=== PATIENT | female | born 1990 | race African-American/Black ===

== ENCOUNTER 2016-07-05 11:51 | Inpatient (IN) ==
--- NOTE | 2016-07-05 14:15 | Ultrasound Report ---
US OB >= 14 weeks fetus Indication: . Question of incompetent cervix. Complete obstetric ultrasound: Neither maternal ovary identified. Single fetus is in a breech position. Posterior placenta without previa. Cervix is completely open, measuring over 20 mm diameter dilation, with bulging membranes in the upper vagina. On various images, the feet protrude into the sac. Largest vertical pocket of amniotic fluid 52 mm. Cerebellum 19 mm and cisterna magna 3 mm. spine, four-chamber heart at 144 bpm, stomach bubble, kidneys, bladder, three-vessel cord and cord insertion site are grossly unremarkable. BPD: 19 weeks 0 days HC: 27/05 AC: 27/05 FL: 26/04 Impression: 1. Single IUP 19 weeks 1 day +/- 9 days. NATY 11/28/2016. Previous estimate 11/24/2016. 2. Cervical incompetence, dilated to 20 mm, with bulging membranes as described. Normal DIRK at this time. Comment: Critical test result discussed with Dr. Sarah at 1400 hours. PROCEDURE INTERPRETED AT [facility] DEPARTMENT OF RADIOLOGY Final Report Signed by: Waqar Tom M.D.
[2016-07-05] MEDS: LACTATED RINGERS 1,000 ML IV SCH ×2 (14:20→15:36)
[2016-07-05] MEDS ORDERED: ePHEDrine 50 MG/ML AMP IV PRN (14:37)
[2016-07-05] MEDS ORDERED: FAMOTIDINE 20 MG/2 ML VIAL IV ONE (14:37)
[2016-07-05] MEDS ORDERED: hydrOXYzine HCL 25 MG/1 ML VIAL IM PRN (14:37)
[2016-07-05] MEDS ORDERED: diphenhydrAMINE 50 MG/1 ML VIAL IV PRN (14:37)
[2016-07-05] MEDS ORDERED: fentaNYL 2 MCG/ROPIV 0.2% EPID 150 ML EPIDURAL SCH (14:37)
[2016-07-05] MEDS ORDERED: CITRIC ACID/SODIUM CITRATE 30 ML UDCUP PO ONE (14:37)
[2016-07-05] MEDS ORDERED: PROMETHAZINE 25 MG/1 ML VIAL IM ONE (14:37)
[2016-07-05 15:11] LABS: Basophils % 0.2 % (0.0-0.8); Eosinophils # 0.1 10*3/uL (0.0-0.87); Eosinophils % 1.2 % (0.00-10.9); Hematocrit 29.3 VOL% (35.7-47.0); Immature Granulocytes % 0.7 %; Immature Granulocytes Absolute 0.06 #; Lymphocytes # 1.9 10*3/uL (1.4-4.0); Lymphocytes % 22.1 % (21.3-54.2); Mean Corpuscular HGB Conc 30.7 GM/DL (32-36); Mean Corpuscular Hemoglobin 24 PG (27-34); Mean Corpuscular Volume 76.5 FL (87-102); Monocytes # 0.7 10*3/uL (0.11-0.8); Monocytes % 8.4 % (1.7-12.7); Neutrophils # 5.8 10*3/uL (1.4-7.4); Neutrophils % 67.4 % (38.7-73.9); Platelet Count 319 T/CUMM (130-400); Red Blood Count 3.83 MC/CUMM (3.8-5.5); Red Cell Distribution Width 16.7 % (9.3-17.3); White Blood Count 8.6 T/CUMM (4-12)
[2016-07-05 15:34] LABS: Alanine Aminotransferase 35 U/L (13-56); Albumin 3.2 G/DL (3.4-5.0); Alkaline Phosphatase 77 U/L (45-117); Aspartate Amino Transferase 20 U/L (0-37); Bilirubin,Total < 0.39 MG/DL (0.2-1.0); Blood Urea Nitrogen 6 MG/DL (7-18); Calcium 8.6 MG/DL (8.5-10.1); Glucose 94 MG/DL (74-106); Osmolality,Calculated 276.4 MOS/KG (273-304); Potassium 3.7 MMOL/L (3.5-5.1); Sodium 140 MMOL/L (136-145); Total Protein 6.9 G/DL (6.4-8.3)
--- NOTE | 2016-07-05 16:22 | OB/GYN History & Physical ---
History of Present Illness Chief complaint: 19+ weeks gestation with incompetent cervix History of present illness: Ms. Gleason is a 26 year old female 2 para 0 who presented to the office for routine examination. This patient was examined heart tones are was obtained, cervix demonstrated a small cervical nub with suture present. Ultrasound was obtained which demonstrated funneling of the amniotic membranes through the cervical opening. This case was discussed with the maternal- medicine Department in [facility] and they felt that a rescue stitch was not feasible at this time because of the diminished cervical length. These options were discussed with the patient .#1 is to allow nature to take his course and patient maybe remain hospitalized . A time. #2 was 2 initiate labor by continuously removing the remaining portion of the suture. And #3 is to allow this patient be discharged and to follow-up once she proceeded into labor. Home Medications Medication Instructions Recorded Confirmed Type Folic Acid Tab 1 mg PO DAILY 05/28/16 07/05/16 History Pnv No.122/Iron/Folic Acid 1 tablet PO DAILY 05/28/16 07/05/16 History [ Multi Tablet] HYDROcodone/ACETAMIN 5-325 [[place] 1 tablet PO Q4H PRN #10 tablet 05/31/16 Rx 5-325] Allergies Allergy/AdvReac Type Severity Reaction Status Date / Time No Known Allergies Allergy Unverified 11/10/15 19:32 Medical,Surgical,& Family Hx - Medical History Neurology: No history of: Brain Aneurysm, Cerebral Hemorrhage, Cerebrovascular Accident , Cerebral Palsy, Dementia, Migraine, Multiple Sclerosis, Parkinson's Disease, Peripheral Neuropathy, Seizures, TIA, Vertigo, Neurologocal Cancer HEENT: History of: Eye Problem (CONTACTS AND GLASSES) Endocrine: No history of: Diabetes Mellitus (IDDM) Genitourinary: History of: Recurring Urinary Tract Infections Musculoskeletal: No history of: Amputation Reproductive: History of: Reproductive Problems (TIGHTENING CERVIX FOR ) No history of: Ectopic , Complication - Surgical History Cardiac Surgeries: Patient Denies: Cardiac Catheterization Thoracic Surgeries: Patient denies;: Organ Transplant, Lobectomy Neurologic Surgeries: Patient denies: Brain Aneurysm, Cerebral Hemorrhage, Neurologic Surgery HEENT Surgeries: Patient denies: Tonsilectomy & Adenoidectomy Reproductive Surgeries: Patient denies;: Section, Genitourinary Surgery - Family History Family History: Reports;: Family Cancer (GREAT GRANDMOTHER), Family Diabetes ( GRANDMOTHER AUNT), Family Hypertension (MOTHER) Denies;: Family Anesthesia Reaction, Family Heart Disease, Family Psychiatric Problems, Family Stroke - Social History Smoking Status: Never smoker Frequency of Alcohol Use: None 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 - Eye Eye exam: Present: EOMI - ENT ENT exam: Present: normal exam - Neck Neck exam: Present: normal inspection - Respiratory Respiratory exam: Present: clear to auscultation bilaterally - Breast Breasts: as per HPI Menstruation: as per HPI - Cardiovascular Cardiovascular exam: Present: regular rate and rhythm - GI/Abdominal GI/Abdominal exam: Present: normal bowel sounds - Extremities Exam Extremities exam: Present: normal inspection - Back Exam Back exam: Present: normal inspection - Neurological Exam Neurological exam: Present: alert, oriented X3 - Psychiatric Psychiatric exam: Present: normal affect - Skin Skin exam: Present: normal color Assessment and Plan (1) Incompetent cervix during second trimester, antepartum Status: Acute Assessment and plan: Cervical incompetence with funneling of the amniotic sac. Multiple options was given to the patient. We'll allow her to rest and discussed this with her family members this evening. Possibility of initiating labor in the a.m. or discharge in his patient to allow nature take its course was discussed with this patient. Current Visit: No Results - Labs CBC & BMP: 07/05/16 14:33 07/05/16 14:33 Quality Measures - VTE Contraindication to Pharmacological VTE Prophylaxis: Continuous Epidural Infusion
[2016-07-05] MEDS: AMPICILLIN INJ 2,000 MG in SODIUM CHLORIDE 0.9% 100 ML IV SCH ×3 (16:50→23:40)
[2016-07-05] MEDS ORDERED: ZALEPLON 5 MG CAPSULE PO PRN (19:49)
[2016-07-06] MEDS: AMPICILLIN INJ 2,000 MG in SODIUM CHLORIDE 0.9% 100 ML IV SCH ×2 (02:30→05:45)
[2016-07-06 08:32] VITALS: BP 125/59
== END 2016-07-06 11:20 | disposition home or self-care (01) | DRG 782 ==
LOC: N.ULTRA 11:51 → N.LD 11:51 → EDSTATUS 13:00 → N.LD 14:08
PROVIDERS: ADMIT Obstetrics & Gynecology; ATTEND Obstetrics & Gynecology

== ENCOUNTER 2016-07-17 20:55 | Inpatient (IN) ==
[2016-07-17] MEDS ORDERED: ONDANSETRON 4 MG/2 ML VIAL IV PRN (21:14)
[2016-07-17] MEDS ORDERED: MEPERIDINE 50 MG/1 ML VIAL IV PRN (21:14)
[2016-07-17] MEDS ORDERED: BUTORPHANOL 2 MG/ML VIAL IV PRN (21:14)
[2016-07-17] MEDS ORDERED: ACETAMINOPHEN 325 MG TABLET PO PRN (21:14)
[2016-07-17] MEDS: LACTATED RINGERS 1,000 ML IV SCH (21:20)
[2016-07-17] MEDS ORDERED: AMPICILLIN INJ 2,000 MG in SODIUM CHLORIDE 0.9% 100 ML IV SCH (21:30)
[2016-07-17] MEDS ORDERED: OXYTOCIN/LR 20 UNIT/1,000 ML BAG IV SCH (21:30)
[2016-07-17 21:36] LABS: Basophils % 0.2 % (0.0-0.8); Eosinophils # 0.1 10*3/uL (0.0-0.87); Eosinophils % 0.4 % (0.00-10.9); Hematocrit 29.2 VOL% (35.7-47.0); Hemoglobin 9.1 GM/DL (12.0-16.0); Immature Granulocytes % 0.7 %; Lymphocytes # 1.7 10*3/uL (1.4-4.0); Lymphocytes % 12.7 % (21.3-54.2); Mean Corpuscular HGB Conc 31.2 GM/DL (32-36); Mean Corpuscular Hemoglobin 24 PG (27-34); Mean Corpuscular Volume 76.6 FL (87-102); Mean Platelet Volume 9.2 FL (9.6-12.0); Monocytes # 1.5 10*3/uL (0.11-0.8); Neutrophils # 10.1 10*3/uL (1.4-7.4); Platelet Count 287 T/CUMM (130-400); Red Blood Count 3.81 MC/CUMM (3.8-5.5); Red Cell Distribution Width 17.1 % (9.3-17.3); White Blood Count 13.5 T/CUMM (4-12)
[2016-07-17 21:59] LABS: Albumin 3.2 G/DL (3.4-5.0); Bilirubin,Total 0.4 MG/DL (0.2-1.0); Total Protein 7.2 G/DL (6.4-8.3)
[2016-07-17 22:00] LABS: Osmolality,Calculated 273.5 MOS/KG (273-304); Potassium 3.6 MMOL/L (3.5-5.1)
[2016-07-17] MEDS ORDERED: HYDROmorphone 2 MG/1 ML VIAL IV PRN (22:14)
[2016-07-17 22:23] LABS: Rubella Antibody IgG 26.1 IU/ML
[2016-07-18] MEDS ORDERED: miSOPROStol 200 MCG TABLET ONE
[2016-07-18] MEDS ORDERED: METHYLERGONOVINE 0.2 MG/1 ML AMP ONE (00:01)
[2016-07-18] MEDS ORDERED: SODIUM CHLORIDE 0.9% 250 ML IV PRN ×2 (00:02→01:34)
[2016-07-18] MEDS ORDERED: CITRIC ACID/SODIUM CITRATE 30 ML UDCUP ONE ×2 (00:11→00:45)
[2016-07-18] MEDS: LACTATED RINGERS 1,000 ML IV SCH (00:20)
[2016-07-18 00:45] LABS: Basophils % 0.1 % (0.0-0.8); Eosinophils % 0.4 % (0.00-10.9); Hematocrit 20.7 VOL% (35.7-47.0); Hemoglobin 6.5 GM/DL (12.0-16.0); Immature Granulocytes % 0.9 %; Immature Granulocytes Absolute 0.06 #; Lymphocytes # 1.8 10*3/uL (1.4-4.0); Lymphocytes % 27.1 % (21.3-54.2); Mean Corpuscular HGB Conc 31.4 GM/DL (32-36); Mean Corpuscular Hemoglobin 24 PG (27-34); Mean Corpuscular Volume 75.5 FL (87-102); Mean Platelet Volume 9.7 FL (9.6-12.0); Monocytes # 1.1 10*3/uL (0.11-0.8); Monocytes % 15.4 % (1.7-12.7); Neutrophils # 3.8 10*3/uL (1.4-7.4); Neutrophils % 56.1 % (38.7-73.9); Platelet Count 230 T/CUMM (130-400); Red Blood Count 2.74 MC/CUMM (3.8-5.5); Red Cell Distribution Width 16.9 % (9.3-17.3); White Blood Count 6.8 T/CUMM (4-12)
[2016-07-18] MEDS ORDERED: FAMOTIDINE 20 MG/2 ML VIAL IV ONE (00:55)
[2016-07-18] MEDS ORDERED: CITRIC ACID/SODIUM CITRATE 30 ML UDCUP PO ONE (00:55)
--- NOTE | 2016-07-18 01:31 | Operative Note ---
Date of procedure: 07/18/16 Procedure: Preoperative diagnosis: Retained placenta, cervical incompetence, delivery of a nonviable 21+ weeks gestation Postoperative diagnosis: Same Anesthesia:[] General anesthesia Estimated blood loss: [] 500 cc Surgeon: Dr. Sarah Findings: [] Retained placenta, evidence of #1 Prolene from a failed Evans suture Complications: None Procedure: dilatation and curettage, Patient was taken to the operating suite after administration of general anesthesia. She was transferred from labor and delivery with retained placenta after delivering a nonviable 21+ week gestation. The patient was prepped and draped in usual manner of the major administration of general anesthesia she was placed in supine position perineum was noted. Weighted speculum space posterior for vagina a ring forcep was used anterior lip of the cervix the suture was disrupted and non-adherent to the cervix this was removed. There was a large curette was placed inside and gentle scraping was obtained in all 4 quadrants the total placenta was removed and sent to the lab for further evaluation then using a large-bore suction curette this was placed inside a gentle scraping was also obtained in all 4 quadrants minimal mild/moderate amount of the tissue was also removed as well expiration of the cervix was noted there was no active bleeding from the cervical edges. The IV Pitocin was started this patient did receive 2 units one preoperatively and one intraoperatively as well. She was extubated in the [place] take care of him in stable condition. [] Surgeon / Physician: Jayshree Sarah Results - Labs CBC & BMP: 07/18/16 00:37 07/17/16 21:29 Discharge Plan - Discharge Medications No Action HYDROcodone/ACETAMIN 5-325 [[place] 5-325] 1 tablet PO Q4H PRN #10 tablet PRN Reason: Pain Moderate (4-7) No122/Iron/Folic Acid [ Multi Tablet] 1 tablet PO DAILY Folic Acid Tab 1 mg PO DAILY - Follow Up or Referral - Forms/Instructions
[2016-07-18] MEDS ORDERED: MEASLES/MUMPS/RUBELLA VACCINE 0.5 ML VIAL SUBCUT ONE (01:32)
[2016-07-18] MEDS ORDERED: ACETAMINOPHEN 325 MG TABLET PO PRN (01:32)
[2016-07-18] MEDS ORDERED: ONDANSETRON 4 MG/2 ML VIAL IV PRN (01:32)
[2016-07-18] MEDS ORDERED: DIPH/TET/ACEL PERT BOOSTER VACCINE 0.5 ML VIAL IM ONE (01:32)
[2016-07-18] MEDS ORDERED: OXYTOCIN/LR 20 UNIT/1,000 ML BAG IV ONE (01:32)
[2016-07-18] MEDS ORDERED: LANOLIN 50% CREAM 0.3 OZ TUBE TOP PRN (01:32)
[2016-07-18] MEDS ORDERED: HYDROCORTISONE 2.5% RECTAL CREAM 30 GM TUBE TOP PRN (01:32)
[2016-07-18] MEDS ORDERED: RHO(D) IMMUNE GLOBULIN 300 MCG SYRINGE IM ONE (01:32)
[2016-07-18] MEDS ORDERED: BISACODYL 10 MG SUPP RECTAL PRN (01:32)
[2016-07-18] MEDS ORDERED: BENZOCAINE 20%/MENTHOL 0.5% SPRAY 56 GM CAN TOP PRN (01:32)
[2016-07-18] MEDS ORDERED: WITCH HAZEL PADS 100/JAR TOP PRN (01:32)
[2016-07-18] MEDS ORDERED: oxyCODONE/ACETAMINOPHEN 5-325 MG TABLET PO PRN ×2 (01:32)
--- NOTE | 2016-07-18 01:46 | OB/GYN History & Physical ---
History of Present Illness Chief complaint: Spontaneous rupture membranes at 21+ weeks History of present illness: Ms. Gleason is a 26 year old female 2 para 0 EDC at 11/23/2016 who presented after rupturing her membranes at 1730 p.m. Patient is approximately 21+ weeks gestation with a known history of cervical incompetence. This patient's been on bedrest for the last week and a half with known bulging funneling membranes.. She presented to labor and delivery at 5-6 cm dilated 80% and 0 station. Obvious rupture membranes she progressed in labor and delivered a nonviable infant at 21 weeks gestation. Patient had heavy vaginal bleeding she received IV Pitocin, and she also received Methergine. The placenta was not delivered and she was subsequently prepared for a dilatation and curettage. Patient was typed and cross for 2 units of blood preoperatively her H&H was 9 and 29 on admission a repeat H&H demonstrated 6 and 20. In light of these findings she subsequently received 1 unit on her route to the operating room and 2 units were placed on hold. The precarious nature of her was discussed in full detail with this patient and her family, she elected to remain at home on complete bedrest. The viability was also discussed with this patient as well and she was in full agreement and consented that she understood the nature of her Home Medications Medication Instructions Recorded Confirmed Type Folic Acid Tab 1 mg PO DAILY 05/28/16 07/17/16 History No122/Iron/Folic Acid 1 tablet PO DAILY 05/28/16 07/17/16 History [ Multi Tablet] HYDROcodone/ACETAMIN 5-325 [[place] 1 tablet PO Q4H PRN #10 tablet 05/31/16 Rx 5-325] Allergies Allergy/AdvReac Type Severity Reaction Status Date / Time No Known Allergies Allergy Unverified 11/10/15 19:32 Medical,Surgical,& Family Hx - Medical History Neurology: No history of: Brain Aneurysm, Cerebral Hemorrhage, Cerebrovascular Accident , Cerebral Palsy, Dementia, Migraine, Multiple Sclerosis, Parkinson's Disease, Peripheral Neuropathy, Seizures, TIA, Vertigo, Neurologocal Cancer HEENT: History of: Eye Problem (CONTACTS AND GLASSES) Endocrine: No history of: Diabetes Mellitus (IDDM) Genitourinary: History of: Recurring Urinary Tract Infections Musculoskeletal: No history of: Amputation Reproductive: History of: Reproductive Problems (TIGHTENING CERVIX FOR ) No history of: Ectopic , Complication - Surgical History Cardiac Surgeries: Patient Denies: Cardiac Catheterization Thoracic Surgeries: Patient denies;: Organ Transplant, Lobectomy Neurologic Surgeries: Patient denies: Brain Aneurysm, Cerebral Hemorrhage, Neurologic Surgery HEENT Surgeries: Patient denies: Tonsilectomy & Adenoidectomy Reproductive Surgeries: Patient denies;: Section, Genitourinary Surgery, Gynecologic Surgery - Family History Family History: Reports;: Family Cancer (GREAT GRANDMOTHER), Family Diabetes ( GRANDMOTHER AUNT), Family Hypertension (MOTHER) Denies;: Family Anesthesia Reaction, Family Heart Disease, Family Hematology , Family Psychiatric Problems, Family Stroke, Additional Family History - Social History Smoking Status: Never smoker Frequency of Alcohol Use: None 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 - Constitutional Vitals: Vital Signs Temp Pulse Resp BP Pulse Ox 07/18/16 00:51 98.2 F 106 H 20 93/52 100 07/18/16 00:44 97.4 F L 108 H 20 103/53 General appearance: mild distress - Antepartum / Post Antepartum Exam Cervix -Dilatation: 5 cm 80% 0 station ruptured membranes, - Head Head exam: Present: normal inspection - Eye Eye exam: Present: EOMI Pupils: Present: REGIS - ENT ENT exam: Present: normal exam - Neck Neck exam: Present: normal inspection - Respiratory Respiratory exam: Present: clear to auscultation bilaterally - Breast Breasts: as per HPI Menstruation: as per HPI - Cardiovascular Cardiovascular exam: Present: tachycardia - GI/Abdominal GI/Abdominal exam: Present: normal bowel sounds - Extremities Exam Extremities exam: Present: normal inspection - Back Exam Back exam: Present: normal inspection - Neurological Exam Neurological exam: Present: alert - Psychiatric Psychiatric exam: Present: normal affect - Skin Skin exam: Present: normal color Assessment and Plan (1) Incompetent cervix during second trimester, antepartum Status: Acute Assessment and plan: Anticipate delivery of a nonviable 21+ week gestation. Current Visit: No Results - Labs CBC & BMP: 07/18/16 00:37 07/17/16 21:29 Quality Measures - VTE Contraindication to Pharmacological VTE Prophylaxis: Clinical assessment deems Pt at low risk, no prophalaxis needed
--- NOTE | 2016-07-18 01:46 | Anesthesia ---
Anesthesia Post OP - Post Ansesthetic Evaluation Patient seen in post op: Yes Resp: within normal limits CV: within normal limits Mental: within normal limits Temp: within normal limits [id number]: within normal limits Nausea and Vomiting: within normal limits Pain: within normal limits
[2016-07-18] MEDS ORDERED: SEVOFLURANE 1 UNIT/15 MINUTE INH ONE (01:50)
[2016-07-18] MEDS ORDERED: MIDAZOLAM 2 MG/2 ML VIAL ONE (01:50)
[2016-07-18] MEDS ORDERED: fentaNYL 100 MCG/2 ML VIAL ONE (01:50)
[2016-07-18] MEDS ORDERED: OXYTOCIN 30 UNIT in DEXTROSE 5% LACTATED RINGERS 1,000 ML INJ ONE (03:00)
[2016-07-18] MEDS: diphenhydrAMINE CAP 25 MG CAPSULE PO PRN ×2 (05:05→21:45)
[2016-07-18] MEDS: DOCUSATE SODIUM 100 MG CAPSULE PO SCH ×2 (09:23→20:45)
[2016-07-18] MEDS: FUROSEMIDE 40 MG/4 ML VIAL IV SCH ×2 (10:24→16:12)
[2016-07-18 10:31] LABS: Basophils % 0.1 % (0.0-0.8); Hematocrit 28.4 VOL% (35.7-47.0); Hemoglobin 9.3 GM/DL (12.0-16.0); Immature Granulocytes % 1.4 %; Immature Granulocytes Absolute 0.35 #; Lymphocytes % 4.1 % (21.3-54.2); Mean Corpuscular HGB Conc 32.7 GM/DL (32-36); Mean Corpuscular Hemoglobin 27 PG (27-34); Mean Corpuscular Volume 81.8 FL (87-102); Mean Platelet Volume 10.1 FL (9.6-12.0); Monocytes # 1.5 10*3/uL (0.11-0.8); Monocytes % 5.8 % (1.7-12.7); Neutrophils # 22.3 10*3/uL (1.4-7.4); Neutrophils % 88.6 % (38.7-73.9); Platelet Count 204 T/CUMM (130-400); Red Blood Count 3.47 MC/CUMM (3.8-5.5); Red Cell Distribution Width 17.2 % (9.3-17.3); White Blood Count 25.2 T/CUMM (4-12)
[2016-07-18 12:03] LABS: Band Neutrophils 2 % (0-10); Hypochromasia 1+; Lymphocytes 6 % (20-55); Segmented Neutrophils 89 % (50-85); Total Cells Counted 100
[2016-07-18 12:04] LABS: Microcytosis 1+; Ovalocytes Slight; Platelet Estimate Adequate
[2016-07-18] MEDS: FERROUS SULFATE 325 MG TABLET PO SCH ×2 (14:03→20:45)
[2016-07-18] MEDS: IBUPROFEN 800 MG TABLET PO PRN (20:45)
[2016-07-19 07:34] VITALS: BP 119/72
[2016-07-19] MEDS: IBUPROFEN 800 MG TABLET PO PRN (08:10)
[2016-07-19 08:36] LABS: Hematocrit 25.4 VOL% (35.7-47.0); Hemoglobin 8.4 GM/DL (12.0-16.0)
--- NOTE | 2016-07-19 08:44 | Event Note ---
Delivery note for 07-17-16 Patient admitted with spontaneous rupture membranes at 21+ weeks gestation Cerclage placed in the first trimester IV Pitocin IV antibiotics IV analgesic Spontaneous delivery of a nonviable female 1 lb. 1 oz. Apgars 0 Delivery time was 2351 Retained placenta Patient be scheduled for dilatation and curettage. Blood loss was approximately 900 cc
--- NOTE | 2016-07-19 08:47 | Discharge Summary ---
Hospital Course - Hospital Course Hospital Course: 26-year-old 2 para 0 who was admitted with spontaneous rupture membranes at 21+ weeks with a known cervical cerclage. Patient progressed in labor delivered a nonviable infant 1 lb. 1 oz. She had a retained placenta was subsequently needed a dilatation and curettage. Her blood loss was approximately 900 cc and she subsequently received transfusion of approximately 4 units of packed RBCs. Her preoperative H&H was 9 and 29, prior to the dilatation and curettage was 6 and 20. She also lost a fair amount of blood doing her us dilatation and curettage so she received the 4 units of blood. Her postoperative course has been essentially unremarkable. She will be discharged today and follow my office in 1 week. She will be scheduled maternal - medicine physician to discuss future options for her pregnancies. Diagnosis - Discharge Diagnosis (1) Incompetent cervix during second trimester, antepartum Status: Acute Specialty Discharge - Follow Up or Referrals Discharge Plan - Discharge Data Condition at Discharge: Stable Discharge Diet: advance to your usual diet Activity: resume usual activities as tolerated, increase activity as tolerated Hygiene: may shower Weight Bearing at Discharge: weight bear as tolerated Driving: no restrictions Contact your physician if you experience:: fever over 101, Shortness of breath - Discharge Medications New Ferrous Sulfate Tab [Feosol Original Tab] 325 mg PO BID #60 tablet oxyCODONE/ACETAMINOPHEN 5-325 [Percocet 5-325] 1 tablet PO Q6H PRN #20 tablet PRN Reason: Pain Severe (8-10) Ibuprofen Tab [Motrin Tab] 800 mg PO Q6H PRN #30 tablet PRN Reason: Pain Moderate (4-7) No Action HYDROcodone/ACETAMIN 5-325 [[place] 5-325] 1 tablet PO Q4H PRN #10 tablet PRN Reason: Pain Moderate (4-7) No122/Iron/Folic Acid [ Multi Tablet] 1 tablet PO DAILY Folic Acid Tab 1 mg PO DAILY - Follow Up or Referral Follow Up: Jayshree Sarah MD [Physician] - 1 Week - Forms/Instructions Instructions: Depression (GEN), Perineal Care (DC), Vaginal Delivery (DC), Bleeding (DC) Exam - Constitutional Vitals: Period Temp Pulse Resp BP Sys/Lama Pulse Ox Last 24 Hr 97.5 F-99.5 F 96-128 16-22 102-137/51-83 96-100 Discharge Results Procedures and tests throughout hospitalization: Pending Orders 07/18/16 00:00 Red Blood Cells Leuko Red Routine Labs on day of discharge: Labs from last 24 hours 07/19/16 07/18/16 07/18/16 08:27 10:25 00:00 WBC 25.2 H D RBC 3.47 L D Hgb 8.4 L 9.3 L D Hct 25.4 L 28.4 L MCV 81.8 L MCH 27 MCHC 32.7 RDW 17.2 Plt Count 204 MPV 10.1 Neut % (Auto) 88.6 H Lymph % (Auto) 4.1 L Simpson % (Auto) 5.8 Eos % (Auto) 0.0 Baso % (Auto) 0.1 Neut # (Auto) 22.3 H Lymph # (Auto) 1.0 L Simpson # (Auto) 1.5 H Eos # (Auto) 0.0 Baso # (Auto) 0.0 Total Counted 100 Immature Gran % 1.4 Nucleated RBC % 0.0 Immature Gran # 0.35 Segmented Neutrophils 89 H Band Neutrophils 2 Lymphocytes 6 L Monocytes 3 Nucleated RBCs # 0.00 Platelet Estimate Adequate Hypochromasia 1+ Microcytosis 1+ Ovalocytes Slight Crossmatch See Detail DS: Provider Date of admission: 07/17/16 20:56 Primary care physician: Nida Saxena Attending physician on admission: Jayshree Sarah MD Consults: 07/17/16 21:14 Consult to Anesthesiology [CONS] Routine Consulting Provider: Reason for Anesthesiology: Epidural Consult Comment: Epidural for pain managment 07/18/16 01:32 Consult to Command And Control [CONS] Routine Consult Command And Control: Breast Feeding Discharging clinician: Jayshree Sarah MD
[2016-07-19] MEDS: DOCUSATE SODIUM 100 MG CAPSULE PO SCH (09:55)
[2016-07-19] MEDS: FERROUS SULFATE 325 MG TABLET PO SCH (09:55)
--- NOTE | 2016-07-19 11:16 | Pathology Report from [facility] ---
ACCESSION # : [id number] PATIENT NAME : Haley Gleason ORDERING DR : MARISOL RONDON MD CLINICAL HX: Retained placenta; IUP @ 21.4 wks, failed cerclage, incompetent cervix POST-OP DX: Same SPECIMEN INFO: #1 Retained placenta #2 POC, umbilical cord #3 Fetus GROSS DESCRIPTION: #1 Received in formalin labeled "HALEY GLEASON" is a fragmented placenta weighing 151 gms and measuring 12.5 x 8.0 x 2.3 cm. The membranes are not received. The umbilical cord measures 3.5 cm, contains three vessels. Sectioning reveals no gross abnormalities. Received separately in a suction container is an aggregate of hemorrhagic tissue and clotted blood measuring 8.5 x 6.5 cm. Sections submitted 1A-Umbilical cord, 1B-Android [employer]os Developer placental tissue.#2 Received fresh labeled with the patient's name "HALEY GLEASON " and consists of umbilical cord segment measuring 18.0 cm. Grossly the cord contains three vessels. Attached to the cord is a fragment of membrane tissue measuring 10.0 x 7.0 cm. [employer]os Developer sections submitted in cassette # 2.#3 Received fresh labeled with the patient's name "HALEY GLEASON" and consists of a 150 gram female fetus with a crown rump measurement of 17.0 cm and a crown to heel measurement of 27.0 cm. No anomalies grossly appreciated. Gross only. DIAGNOSIS FOR HALEY GLEASON: #1 RETAINED PLACENTA: Three vessel umbilical cord with acute funisitis. Immature placental chorionic villi with maternal floor infection.#2 PRODUCTS OF CONCEPTION, D&C: Three vessel umbilical cord with acute funisitis. Placental membranes with marked acute chorioamnionitis.#3 Phenotypic female fetus, with no gross skeletal abnormalities. SERVICE DATE: 07/18/2016 REPORT DATE: 07/19/2016 PATHOLOGIST: Jerry Cagle
== END 2016-07-19 20:15 | disposition home or self-care (01) | DRG 767 ==
LOC: N.LDOUT 20:55 → N.LD 20:56 → N.OB 07-18 04:16
PROVIDERS: ADMIT Obstetrics & Gynecology; ATTEND Obstetrics & Gynecology

== ENCOUNTER 2018-11-17 06:08 | Inpatient (IN) ==
[2018-11-17] MEDS ORDERED: ONDANSETRON 4 MG/2 ML VIAL IV PRN ×2 (06:23→17:11)
[2018-11-17] MEDS ORDERED: LACTATED RINGERS 500 ML IV PRN (06:23)
[2018-11-17] MEDS ORDERED: MEPERIDINE 50 MG/1 ML VIAL IV PRN (06:23)
[2018-11-17] MEDS ORDERED: BUTORPHANOL 2 MG/ML VIAL IV PRN (06:23)
[2018-11-17] MEDS ORDERED: OXYTOCIN/LR 20 UNIT/1,000 ML BAG IV SCH (06:30)
[2018-11-17 07:09] LABS: Basophils % 0.5 % (0.0-0.8); Eosinophils # 0.1 10*3/uL (0.0-0.87); Eosinophils % 1.1 % (0.00-10.9); Hematocrit 29.5 VOL% (35.7-47.0); Hemoglobin 8.5 GM/DL (12.0-16.0); Immature Granulocytes % 0.9 %; Immature Granulocytes Absolute 0.06 #; Lymphocytes # 1.7 10*3/uL (1.4-4.0); Mean Corpuscular HGB Conc 28.8 GM/DL (32-36); Mean Corpuscular Volume 75.4 FL (87-102); Mean Platelet Volume 10.1 FL (9.6-12.0); Monocytes % 13.6 % (1.7-12.7); Neutrophils % 57.9 % (38.7-73.9); Platelet Count 255 T/CUMM (130-400); Red Blood Count 3.91 MC/CUMM (3.8-5.5); Red Cell Distribution Width 18.5 % (9.3-17.3); White Blood Count 6.5 T/CUMM (4-12)
[2018-11-17] MEDS: LACTATED RINGERS 1,000 ML IV SCH ×2 (07:14→11:10)
[2018-11-17 07:25] LABS: Albumin 2.7 G/DL (3.4-5.0); Bilirubin,Total 0.6 MG/DL (0.2-1.0); Calcium 9.2 MG/DL (8.5-10.1); Osmolality,Calculated 270.7 MOS/KG (273-304); Total Protein 7.3 G/DL (6.4-8.3)
[2018-11-17 07:27] LABS: Hypochromasia 2+; Platelet Estimate Adequate
[2018-11-17] MEDS ORDERED: NALOXONE 0.4 MG/ML VIAL IV PRN (07:42)
[2018-11-17] MEDS ORDERED: FAMOTIDINE 20 MG/2 ML VIAL IV ONE (07:42)
[2018-11-17] MEDS ORDERED: ePHEDrine 50 MG/ML AMP IV PRN (07:42)
[2018-11-17] MEDS ORDERED: LACTATED RINGERS 1,000 ML IV ONE (07:42)
[2018-11-17] MEDS ORDERED: diphenhydrAMINE 50 MG/1 ML VIAL IV PRN ×3 (07:42→23:19)
[2018-11-17] MEDS ORDERED: CITRIC ACID/SODIUM CITRATE 30 ML UDCUP PO ONE (07:42)
[2018-11-17] MEDS ORDERED: fentaNYL 2 MCG/ROPIV 0.2% EPID 100 ML EPIDURAL SCH (08:00)
[2018-11-17] MEDS ORDERED: PHENYLEPHRINE 1 MG/10 ML SYRINGE IV ONE (09:00)
[2018-11-17 10:27] LABS: Amorphous Crystals,Urine Few /HPF (Few); Apearance,Urine CLEAR (Clear); Bilirubin,Urine Negative (Negative); Blood, Urine Negative (Negative); Glucose,Urine (UA) Negative (Negative); Ketones,Urine 20 mg/dL (Negative); Mucus,Urine Occasional /LPF (Occasional); Nitrite,Urine Negative (Negative); Protein,Urine 30 MG/DL; RBC,Urine 1 /HPF (0-4); Squamous Epithelial Cell,Urine Occasional /HPF (0-10); Urine Color Yellow (Yellow); Urine Specific Gravity 1.015 (1.001-1.035); Urine Urobilinogen < 2.0 EU/DL (0.2-1.0); WBC,Urine <1 /HPF (0-6)
[2018-11-17] MEDS ORDERED: OXYTOCIN 10 UNIT/ML VIAL IM ONE (16:05)
[2018-11-17] MEDS ORDERED: ceFAZolin 3,000 MG in SYRINGE 1 EACH IV ONE (16:09)
[2018-11-17] MEDS ORDERED: OXYTOCIN/LR 30 UNIT/1,000 ML BAG IV ONE (16:11)
[2018-11-17] MEDS ORDERED: MORPHINE 10 MG/10 ML VIAL ONE (16:57)
[2018-11-17 17:02] LABS: Cord Venous Blood HCO3 21.5 MMOL/L; Cord Venous Blood PCO2 37.9 MMHG; Cord Venous Blood PO2 31.6
[2018-11-17 17:05] LABS: Cord Arterial Blood HCO3 20.2 MMOL/L
[2018-11-17] MEDS ORDERED: RHO(D) IMMUNE GLOBULIN 300 MCG SYRINGE IM ONE (17:11)
[2018-11-17] MEDS ORDERED: SIMETHICONE CHEW 80 MG TABLET PO PRN (17:11)
[2018-11-17] MEDS ORDERED: OXYTOCIN/LR 20 UNIT/1,000 ML BAG IV ONE (17:11)
[2018-11-17] MEDS ORDERED: ACETAMINOPHEN 325 MG TABLET PO PRN (17:11)
[2018-11-17] MEDS ORDERED: LACTATED RINGERS 1,000 ML IV SCH (17:30)
[2018-11-17] MEDS ORDERED: PROPOFOL 200 MG/20 ML VIAL IV ONE (18:46)
[2018-11-17] MEDS ORDERED: KETOROLAC 30 MG/1 ML VIAL ONE (18:46)
[2018-11-17] MEDS: IBUPROFEN 800 MG TABLET PO PRN (19:48)
[2018-11-17] MEDS ORDERED: diphenhydrAMINE CAP 25 MG CAPSULE PO ONE (20:18)
[2018-11-17] MEDS: ceFAZolin 1,000 MG in SYRINGE 1 EACH IV SCH (23:57)
[2018-11-18 02:50] LABS: Basophils % 0.4 % (0.0-0.8); Eosinophils # 0.1 10*3/uL (0.0-0.87); Eosinophils % 0.7 % (0.00-10.9); Hematocrit 23.6 VOL% (35.7-47.0); Hemoglobin 6.9 GM/DL (12.0-16.0); Immature Granulocytes % 0.5 %; Immature Granulocytes Absolute 0.06 #; Lymphocytes # 1.7 10*3/uL (1.4-4.0); Mean Corpuscular HGB Conc 29.2 GM/DL (32-36); Mean Corpuscular Volume 76.1 FL (87-102); Mean Platelet Volume 9.8 FL (9.6-12.0); Monocytes % 12.5 % (1.7-12.7); Neutrophils % 70.9 % (38.7-73.9); Platelet Count 187 T/CUMM (130-400); Red Cell Distribution Width 18.3 % (9.3-17.3); White Blood Count 11.3 T/CUMM (4-12)
[2018-11-18] MEDS ORDERED: SODIUM CHLORIDE 0.9% 1,000 ML IV PRN (06:25)
[2018-11-18] MEDS: ceFAZolin 1,000 MG in SYRINGE 1 EACH IV SCH (07:32)
[2018-11-18] MEDS: MULTIVITAMIN (PRENATAL) TABLET PO SCH (09:50)
[2018-11-18] MEDS: DOCUSATE SODIUM 100 MG CAPSULE PO SCH ×2 (09:50→21:19)
[2018-11-18] MEDS: FERROUS SULFATE 325 MG TABLET PO SCH ×3 (09:50→21:19)
[2018-11-18] MEDS: MAGNESIUM HYDROXIDE SUSP 30 ML UDCUP PO PRN ×2 (09:50→21:19)
[2018-11-18] MEDS: IBUPROFEN 800 MG TABLET PO PRN (17:06)
[2018-11-18 18:51] LABS: Hematocrit 28.8 VOL% (35.7-47.0)
[2018-11-18 19:02] LABS: Hemoglobin 8.7 GM/DL (12.0-16.0)
[2018-11-18] MEDS: METOCLOPRAMIDE 10 MG TABLET PO PRN (21:19)
[2018-11-19] MEDS: METOCLOPRAMIDE 10 MG TABLET PO PRN ×3 (04:53→23:05)
[2018-11-19 05:14] LABS: Hematocrit 31.6 VOL% (35.7-47.0); Hemoglobin 9.5 GM/DL (12.0-16.0)
[2018-11-19] MEDS: DOCUSATE SODIUM 100 MG CAPSULE PO SCH ×3 (10:01→21:48)
[2018-11-19] MEDS: FERROUS SULFATE 325 MG TABLET PO SCH ×3 (10:01→21:40)
[2018-11-19] MEDS: MULTIVITAMIN (PRENATAL) TABLET PO SCH (10:01)
[2018-11-19] MEDS: MAGNESIUM HYDROXIDE SUSP 30 ML UDCUP PO PRN ×2 (17:16→21:40)
[2018-11-20 07:33] VITALS: BP 128/75
[2018-11-20] MEDS: MULTIVITAMIN (PRENATAL) TABLET PO SCH (09:52)
[2018-11-20] MEDS: DOCUSATE SODIUM 100 MG CAPSULE PO SCH (09:52)
[2018-11-20] MEDS: FERROUS SULFATE 325 MG TABLET PO SCH ×2 (09:52→17:14)
[2018-11-20] MEDS ORDERED: DIPH/TET/ACEL PERT BOOSTER VACCINE 0.5 ML VIAL IM ONE (11:30)
== END 2018-11-20 17:10 | disposition home or self-care (01) | DRG 786 ==
LOC: N.LDOUT 06:08 → N.LD 06:11 → N.OB 21:54
PROVIDERS: ADMIT Obstetrics & Gynecology; ATTEND Obstetrics & Gynecology
PROC: LDCSECT (ICD-10-PCS; 2018-11-17 16:00)